=== PATIENT | female | born 1995 | race African-American/Black ===

== ENCOUNTER 2021-11-04 11:27 | Emergency (ER) | payer BC, SELFPAY ==
[2021-11-04 11:40] VITALS: BP 118/79; PULSE 77; RESP 18; TEMP 36.9; O2SAT 100
--- NOTE | 2021-11-04 12:00 | ED.URI ---
HPI - URI/Sore Throat General Chief Complaint: Upper Respiratory Infection Stated Complaint: head congestion/cough Time Seen by Provider: 11/04/21 11:50 Source: patient and RN notes reviewed Mode of arrival: ambulatory Limitations: no limitations History of Present Illness HPI Narrative: Patient presents today with a 10-day history of nasal congestion, postnasal drip, cough that is worse at night, headache. Patient has been taking Tylenol for her headache, drinking tea, and using a humidifier. States she needs a COVID-19 test for her work. She had one 3 days ago that was negative. MD elicited complaint: cough and nasal congestion Related Data Allergies Allergy/AdvReac Type Severity Reaction Status Date / Time No Known Allergies Allergy Verified 11/04/21 11:38 Review of Systems Review of Systems: CONSTITUTIONAL: Denies body aches, fever, chills, or sweats. EYES: Denies visual changes, redness, or discharge. ENT: Denies rhinorrhea, sore throat, or otalgia.+ Congestion, sinus pressure, postnasal drip CARDIOVASCULAR: Denies chest pain, palpitations, or edema. RESPIRATORY: Denies dyspnea.+ Cough GASTROINTESTINAL: Denies abdominal pain, nausea, vomiting, or diarrhea. GENITOURINARY: Denies dysuria or hematuria. SKIN: Denies rash, itching, or wounds. MUSCULOSKELETAL: Denies back pain, joint pain, or myalgia. NEUROLOGIC: Denies headache, numbness, tingling, or weakness. PSYCH: Denies depression or anxiety. PMFSH Comments At time of signature, I have reviewed and agree with nursing past medical, surgical, social and family history unless otherwise noted. Please see nursing chart for further information. There is no relevant family history pertinent to the presenting complaint Exam Narrative: GENERAL: Well-appearing, well-nourished, and in no acute distress. HEAD: Normocephalic, atraumatic. EYES: EOMI. No redness or drainage. Conjunctivae normal. ENT: Mucous membranes pink and moist. Nares clear. Left frontal and maxillary sinus tenderness. No rhinorrhea. TMs normal bilaterally. Throat normal. Uvula midline. NECK: Normal AROM. Supple. No lymphadenopathy. CHEST: No respiratory distress. Clear to auscultation. HEART: Regular rate and rhythm. No murmur appreciated. Normal peripheral pulses. EXTREMITIES: Normal range of motion. No edema. SKIN: Warm, dry, no rash. Capillary refill normal. Normal skin turgor. NEURO: No focal deficits. Alert and oriented x3. Gait steady. PSYCH: Normal affect. No signs of depression or anxiety. Course Vital Signs Vital signs: Vital Signs Temperature 98.5 F 11/04/21 11:40 Pulse Rate 77 11/04/21 11:40 Respiratory Rate 18 11/04/21 11:40 Blood Pressure 118/79 11/04/21 11:40 Pulse Oximetry 100 11/04/21 11:40 Temperature 98.5 F 11/04/21 11:40 Pulse Rate 77 11/04/21 11:40 Respiratory Rate 18 11/04/21 11:40 Blood Pressure 118/79 11/04/21 11:40 Pulse Oximetry 100 11/04/21 11:40 Reviewed MDM - URI/Sore Throat Differential Diagnosis Differential diagnosis: Likely upper respiratory infection, sinusitis, viral infection, bronchitis and other (COVID-19) Lab Data Attestation: I reviewed the patient's lab results. Labs: Lab Results 11/04/21 Range/Units 11:15 POC SARS CoV-2 Ag Negative (Negative) Critical Care Time Critical Care Time Critical Care Time: No Discharge Plan Discharge Clinical Impression: Sinusitis Qualifiers: Sinusitis location: unspecified location Chronicity: acute Recurrence: non-recurrent Qualified Code(s): J01.90 - Acute sinusitis, unspecified Patient Disposition: Home, Self-Care Condition: Stable Instructions: Antibiotic Form, Sinusitis (ED) Additional Instructions: Your COVID-19 test is negative today. Please take the amoxicillin as prescribed until gone. Take a decongestant such as Sudafed to help break up congestion. Follow-up with your doctor in 3 to 4 days if symptoms are not improving. Patient Lang
== END 2021-11-04 12:11 | disposition home or self-care (01) ==
PROVIDERS: Emergency Provider Nurse Practitioner
DX: J01.90 Acute sinusitis, unspecified (principal); Z20.822 Contact with and (suspected) exposure to COVID-19
CPT/HCPCS: 87426; 99213; C9803; G0463

== ENCOUNTER 2021-11-19 10:55 | Emergency (ER) | payer BC, SELFPAY ==
[2021-11-19 11:26] VITALS: BP 102/73; PULSE 97; RESP 20; TEMP 37.1; O2SAT 100
--- NOTE | 2021-11-19 12:29 | ED.URI ---
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 Patient states she has a shorter couple day history of fever to 101?102 associated nasal congestion and slightly productive cough. She was antibiotic amoxicillin for sinus issues about a week ago; no sore throat, earache; loss of taste/smell, S OB, vomiting/diarrhea, CP. Symptoms are mild, slightly worse sleeping/supine. Related Data Allergies Allergy/AdvReac Type Severity Reaction Status Date / Time No Known Allergies Allergy Verified 11/19/21 11:24 Review of Systems Review of Systems: General/Constitutional: No weight loss, REPORTS fever Eyes: N0: Redness,discharge Ears/Nose/Throat: No: Epistaxis,ear discharge Respiratory: Denies: Hemoptysis Gastrointestinal: No Vomiting, Bleeding-rectal Skin: No Lumps, eruption Neurologic: No Focal Weakness,Sz Hematologic: Denies: Petechiae/Purpura Psychiatric: No: Suicida ideationl All Other Systems: Reviewed and Negative PMFSH Comments At time of signature, agree with nursing past medical, surgical, social and family history. There is no relevant family history pertinent to the presenting complaint Exam Narrative: General Appearance: Well appearing, Well nourished EYE: PERRLA, Conjunctiva clear Ears: Auditory canal normal, TM normal Nose: Rhinorrhea, Mucousal erythema Mouth/Throat: MM moist, Uvula midline, Pharyngeal erythema Neck: Supple, No adenopathy Respiratory: No respiratory distress, Breath sounds equal, Clear to auscultation Cardiovascular: RRR, No JVD Musculoskeletal: Non tender, Normal strength Skin: Warm, Dry Neurological: A&O x3, CN II-XII intact Psychiatric: Normal mood, Normal affect Course Vital Signs Vital signs: Vital Signs Temperature 98.7 F 11/19/21 11:26 Pulse Rate 97 11/19/21 11:26 Respiratory Rate 20 11/19/21 11:26 Blood Pressure 102/73 11/19/21 11:26 Pulse Oximetry 100 11/19/21 11:26 Temperature 98.7 F 11/19/21 11:26 Pulse Rate 97 11/19/21 11:26 Respiratory Rate 20 11/19/21 11:26 Blood Pressure 102/73 11/19/21 11:26 Pulse Oximetry 100 11/19/21 11:26 MDM - URI/Sore Throat Lab Data Labs: Influenza A Screen Negative Reference Range: Negative Influenza B Screen Negative Reference Range: Negative Discharge Plan Discharge Clinical Impression: Sinus headache Patient Disposition: Home, Self-Care Condition: Stable Instructions: Rhinosinusitis (ED) Prescriptions: New benzonatate 100 mg capsule 100 mg PO TID PRN (Reason: cough) Qty: 20 RF: 2 azelastine 137 mcg (0.1 %) aerosol,spray 137 mcg NASAL Q12H Qty: 30 RF: 0 Other Ambulatory Orders: SARS-CoV-2 RNA, Qual RT-PCR (Routine) Location: Determined by Patient Ordered By: Seamus Jones Follow-up/Referrals: UNKNOWN,DOCTOR [Primary Care Provider] - Stand Alone Forms: Work/School Release IP
== END 2021-11-19 12:40 | disposition home or self-care (01) ==
PROVIDERS: Emergency Provider Emergency Medicine
DX: R51.9 Headache, unspecified (principal); Z20.822 Contact with and (suspected) exposure to COVID-19
CPT/HCPCS: 87426; 87804; 99213; C9803; G0463